=== PATIENT | male | born 1925 | race Caucasian/White ===

== ENCOUNTER 2016-12-08 08:41 | Emergency (ER) | payer MEDICARE, BC ==
[~2016-12-08] VITALS: Ht 177.8 cm; Wt 75.0 kg
[2016-12-08 08:43] VITALS: PULSE 79; TEMP 94.8
[2016-12-08 11:19] VITALS: BP 160/92
[2016-12-08] MEDS ORDERED: NORVASC 5MG5 MG/TAB PO (11:30)
== END 2016-12-08 11:47 | disposition home or self-care (01) ==
LOC: COL.ER 08:41
DX: R04.0 Epistaxis (principal); I10 Essential (primary) hypertension

== ENCOUNTER 2017-04-17 20:53 | Inpatient (IN) | payer MEDICARE, BC ==
[~2017-04-17] VITALS: Ht 177.8 cm; Wt 71.4 kg
[~2017-04-17 20:53] MED LIST: NORVASC 5MG5 MG/TAB PO
[2017-04-17] MEDS ORDERED: LAMISIL250 M1 PO (21:13)
[2017-04-17 23:36] VITALS: BP 144/64; PULSE 75; TEMP 98.6
[2017-04-17] MEDS ORDERED: ASPIRIN 32325 MG/TAB PO (23:46)
[2017-04-18] VITALS (11 sets, daily range): BP systolic 124–175; BP diastolic 62–84; PULSE 66–87; TEMP 97.7–98.4
[2017-04-18 00:18] LABS: PROTHROMBIN TIME 11.4 SECONDS (9.7-12.8)
[2017-04-18 02:09] LABS: HEMATOCRIT 43.3 % (42.0-52.0); HEMOGLOBIN 14.6 g/dl (13.5-18.0); MEAN CELL VOLUME 90 fl (80.0-100.0); MEAN CORPUSCULAR HEMOGLOBIN 30 pg (27.0-31.0); MEAN CORPUSCULAR HGB CONC 34 g/dl (33.0-37.0); MEAN PLATELET VOLUME 10.9 fl (7.4-10.4); PLATELET COUNT 232 K/mm3 (130-400); RED BLOOD COUNT 4.83 M/mm3 (4.20-5.60); REDCELL DISTRIBUTION WIDTH-CV 13.4 % (11.5-14.5)
[2017-04-18 02:12] LABS: ADD PATHOLOGY DIFF REVIEW NO
[2017-04-18 02:18] LABS: BAND 27 % (0-10); NEUTROPHILS 59 % (42.0-75.2); PLATELET ESTIMATE NORMAL (NORMAL); TOTAL CELLS COUNTED 100
[2017-04-18 02:24] LABS: ADJUSTED CALCIUM 9.1 mg/dL (8.4-10.2); ALBUMIN 3.3 gm/dL (3.5-5.0); BILIRUBIN,TOTAL 0.8 mg/dL (0.0-1.0); CALCIUM 8.5 mg/dL (8.4-10.2); CREATININE, serum 0.64 mg/dL (0.66-1.25); POTASSIUM 4.1 mmol/L (3.4-5.0); TOTAL PROTEIN 6.1 gm/dL (6.4-8.2)
[2017-04-18 03:36] LABS: PH 5 (5-8); SQUAMOUS EPITHELIAL None Seen /hpf; URINE APPEARANCE Hazy; URINE BACTERIA None Seen /hpf; URINE BILIRUBIN Negative (NEGATIVE); URINE BLOOD 3+ (NEGATIVE); URINE COLOR Yellow; URINE GLUCOSE 1+ (NEGATIVE); URINE KETONE Trace (NEGATIVE); URINE RBC >50 /hpf
[2017-04-18 03:38] LABS: URINE WBC 20-50 /hpf
[2017-04-19 01:42] VITALS: BP 125/65; PULSE 86; TEMP 98.4
[2017-04-19 06:09] VITALS: BP 130/66; PULSE 84; TEMP 97.5
[2017-04-19 07:36] LABS: BASO # 0.1 (0.0-0.2); BASO % 0.6 % (0.0-2.0); EOS # 0.1 (0.0-0.7); EOS % 0.4 % (0-4.0); GRAN # 9.1 (1.4-6.5); GRAN % 77.7 % (42.2-75.2); HEMATOCRIT 41.5 % (42.0-52.0); HEMOGLOBIN 13.7 g/dl (13.5-18.0); LYMPH # 1.1 (1.2-3.4); LYMPH % 9.5 % (20.0-51.0); MEAN CELL VOLUME 92 fl (80.0-100.0); MEAN CORPUSCULAR HEMOGLOBIN 30 pg (27.0-31.0); MEAN CORPUSCULAR HGB CONC 33 g/dl (33.0-37.0); MEAN PLATELET VOLUME 11.4 fl (7.4-10.4); MONO # 1.4 (0.1-0.6); MONO % 11.5 % (1.7-9.3); PLATELET COUNT 207 K/mm3 (130-400); RED BLOOD COUNT 4.51 M/mm3 (4.20-5.60); REDCELL DISTRIBUTION WIDTH-CV 13.2 % (11.5-14.5); WHITE BLOOD COUNT 11.8 K/mm3 (4.8-10.8)
[2017-04-19 07:57] LABS: CALCIUM 8.3 mg/dL (8.4-10.2); CREATININE, serum 0.73 mg/dL (0.66-1.25)
[2017-04-19 11:08] VITALS: BP 156/65; PULSE 94; TEMP 97.8
[2017-04-19 13:52] VITALS: BP 145/55; PULSE 94; TEMP 97.5
[2017-04-19 18:36] VITALS: BP 136/63; PULSE 96; TEMP 98.1
[2017-04-19 21:29] VITALS: BP 156/59; PULSE 82; TEMP 98.5
[2017-04-20 02:02] VITALS: BP 137/63; PULSE 83; TEMP 98.5
[2017-04-20 04:56] VITALS: BP 152/47; PULSE 70; TEMP 98.2
[2017-04-20 06:38] LABS: HEMOGLOBIN 12.4 g/dl (13.5-18.0); MEAN CELL VOLUME 90 fl (80.0-100.0); MEAN CORPUSCULAR HEMOGLOBIN 31 pg (27.0-31.0); MEAN CORPUSCULAR HGB CONC 34 g/dl (33.0-37.0); MEAN PLATELET VOLUME 11.7 fl (7.4-10.4); PLATELET COUNT 190 K/mm3 (130-400); RED BLOOD COUNT 4.06 M/mm3 (4.20-5.60); REDCELL DISTRIBUTION WIDTH-CV 13.2 % (11.5-14.5); WHITE BLOOD COUNT 13.2 K/mm3 (4.8-10.8)
[2017-04-20 06:45] LABS: ADD PATHOLOGY DIFF REVIEW NO; HEMATOCRIT 36.5 % (42.0-52.0)
[2017-04-20 08:34] LABS: BAND 8 % (0-10); NEUTROPHILS 66 % (42.0-75.2); PLATELET ESTIMATE NORMAL (NORMAL); TOTAL CELLS COUNTED 100
[2017-04-20] MEDS ORDERED: XARELTO10 MG PO ×2 (09:12→12:11)
[2017-04-20] MEDS ORDERED: OYSCO 500500 M1 PO (09:13)
[2017-04-20] MEDS ORDERED: VITAMINC500CH PO (09:14)
[2017-04-20] MEDS ORDERED: DUO-KAPS1 CAP PO (09:14)
[2017-04-20] MEDS ORDERED: NORCO 325 MG-51 TAB PO (09:14)
[2017-04-20 09:23] VITALS: BP 155/69; PULSE 95; TEMP 98.1
== END 2017-04-20 13:22 | DRG 480 ==
LOC: COL.ER 20:53 → SURG 22:37
PROVIDERS: Emergency Medicine; Internal Medicine; Nurse Practitioner Family; Orthopaedic Surgery; Physician Assistant
PROC: 0QS736Z Reposition Left Upper Femur with Intramedullary Internal Fixation Device, Percutaneous Approach (ICD-10-PCS; principal; 2017-04-18 12:00)
DX: S72.142A Displaced intertrochanteric fracture of left femur, initial encounter for closed fracture (principal); A41.9 Sepsis, unspecified organism; N39.0 Urinary tract infection, site not specified; D62 Acute posthemorrhagic anemia; W18.30XA Fall on same level, unspecified, initial encounter; F41.9 Anxiety disorder, unspecified
CPT/HCPCS: 99223-AI; 99232-AI; 99239; A4315; A9284; C1713; J0690; J0696; J2060; J2250; J2270; J2704

== ENCOUNTER 2017-08-11 14:50 | Emergency (ER) | payer MEDICARE, BC ==
[~2017-08-11] VITALS: Ht 177.8 cm; Wt 72.7 kg
[~2017-08-11 14:50] MED LIST changes: +ASPIRIN 32325 MG/TAB PO; +DUO-KAPS1 CAP PO; +LAMISIL250 M1 PO; +NORCO 325 MG-51 TAB PO; +OYSCO 500500 M1 PO; +VITAMINC500CH PO; +XARELTO10 MG PO
[2017-08-11 14:57] VITALS: BP 161/82; TEMP 97.7
[2017-08-11] MEDS ORDERED: TYLENOL 325MG325 MG PO (15:28)
[2017-08-11 16:10] VITALS: PULSE 95
== END 2017-08-11 16:13 | disposition home or self-care (01) ==
LOC: COL.ER 14:50
DX: S09.90XA Unspecified injury of head, initial encounter (principal); S01.01XA Laceration without foreign body of scalp, initial encounter; R40.2412 Glasgow coma scale score 13-15, at arrival to emergency department; W01.198A Fall on same level from slipping, tripping and stumbling with subsequent striking against other object, initial encounter